=== PATIENT | male | born 1970 | race Caucasian/White ===

== ENCOUNTER 2024-10-03 21:37 | Emergency (ER) | payer OTHER ==
[2024-10-03 22:19] LABS: BASOPHILS ABSOLUTE AUTO 0.05 K/uL (0.00-0.20); BASOPHILS PERCENT AUTO 0.6 % (0.0-2.0); EOSINOPHILS ABSOLUTE AUTO 0.08 K/uL (0.00-0.50); EOSINOPHILS PERCENT AUTO 0.9 % (0.0-5.0); HEMATOCRIT 46.7 % (39.0-49.0); HEMOGLOBIN 15.8 g/dL (13.1-16.8); IMMATURE GRAN ABSOLUTE AUTO 0.01 10^3/uL (0.00-0.04); IMMATURE GRAN PERCENT AUTO 0.1 % (0.0-0.4); LYMPHOCYTES ABSOLUTE AUTO 1.77 K/uL (0.50-3.50); LYMPHOCYTES PERCENT AUTO 20.2 % (10.0-50.0); MEAN CORPUSCULAR HEMOGLOBIN 29.1 pg (28.2-33.3); MEAN CORPUSCULAR HGB CONC 33.8 g/dL (31.7-36.0); MONOCYTES ABSOLUTE AUTO 0.75 K/uL (0.00-1.00); MONOCYTES PERCENT AUTO 8.5 % (2.0-14.0); NEUTROPHILS ABSOLUTE AUTO 6.12 K/uL (1.40-7.00); NEUTROPHILS PERCENT AUTO 69.7 % (45.0-80.0); PLATELET COUNT,PLT 246 K/uL (150-350); RED BLOOD CELL COUNT 5.43 M/uL (4.33-5.41); WHITE BLOOD CELL COUNT,WBC 8.8 K/uL (4.0-10.2)
[2024-10-03 22:25] LABS: APPEARANCE,URINE CLEAR; BILIRUBIN,URINE NEGATIVE (NEGATIVE); COLOR,URINE YELLOW; GLUCOSE,URINE NEGATIVE (NEGATIVE); KETONES,URINE NEGATIVE (NEGATIVE); LEUKOCYTE ESTERASE,URINE NEGATIVE (NEGATIVE); NITRITE,URINE NEGATIVE (NEGATIVE); OCCULT BLOOD,URINE NEGATIVE (NEGATIVE); PH,URINE 5.5 (5.0-9.0); PROTEIN,URINE NEGATIVE (NEGATIVE); UROBILINOGEN,URINE 0.2 E.U./dL (0.2-1.0)
[2024-10-03 22:33] LABS: ALANINE AMINOTRANSFERASE,ALT 47 U/L (12-78); ALBUMIN 3.7 g/dL (3.4-5.0); ALKALINE PHOSPHATASE 98 IU/L (46-116); ANION GAP 9.4 meq/L (7-15); ASPARTATE AMNIOTRANSFERASE,AST 21 U/L (15-37); BILIRUBIN TOTAL 0.3 mg/dL (0.2-1.0); BLOOD UREA NITROGEN,BUN 23 mg/dL (7-18); CALCIUM 9.7 mg/dL (8.5-10.1); CARBON DIOXIDE,CO2 26.6 mmol/L (21.0-32.0); CHLORIDE,CL 104 mmol/L (98-107); CREATININE 1.96 mg/dL (0.51-1.17); ETHANOL BLOOD MEDICAL 0.033 g/dL (0.000-0.080); GLUCOSE RANDOM 110 mg/dL (70-99); LIPASE 51 U/L (16-77); MAGNESIUM 1.6 mg/dL (1.8-2.4); POTASSIUM,K 3.6 mmol/L (3.5-5.1); PROTEIN TOTAL,TP 7.8 g/dL (6.4-8.2); SODIUM,NA 140 mmol/L (136-145)
[2024-10-03 22:35] LABS: ESTIMATED GFR 40 mL/min (>=60)
[2024-10-03] MEDS ORDERED: Sodium Chloride 0.9% 10 ML Syringe FLUSH PRN (22:59)
[2024-10-03] MEDS: Sodium Chloride 0.9% 1,000 ML IV ONE (23:10)
[2024-10-03] MEDS: Ketorolac 15 MG/ML SDV IVPUSH ONE (23:16)
[2024-10-03] MEDS: Magnesium Sulf/Wat 2 GM/50 mL 2 GM in Premix Bag 1 BAG IV ONE (23:17)
[2024-10-03] MEDS: oxyCODONE 5 MG Tab PO ONE (23:17)
[2024-10-04] MEDS: Sodium Chloride 0.9% 1,000 ML IV ONE (00:15)
[2024-10-04] MEDS: Lactulose Soln 10 GM/15 ML 30 ML UD Cup PO ONE ×2 (00:59→01:00)
[2024-10-04] MEDS ORDERED: Sodium Polystyrene Sulfonate 15 GM/60 ML Susp 60 ML Bot PO ONE (01:00)
== END 2024-10-04 01:25 | disposition home or self-care (01) ==
LOC: LL.ED 21:37
DX: M54.50 Low back pain, unspecified (principal); E83.42 Hypomagnesemia; I10 Essential (primary) hypertension; Z79.85 Long-term (current) use of injectable non-insulin antidiabetic drugs; Z79.899 Other long term (current) drug therapy
CPT/HCPCS: 36415; 74019; 74176; 80053; 80307; 81003; 83605; 83690; 83735; 85025; 87428-QW; 96365; 96366; 96375; 99284; 99284-25; A9270-GY; J1885; J3475; J7030